=== PATIENT | female | born 1990 ===

== ENCOUNTER 2025-09-06 15:44 | Emergency (ER) | payer BC ==
[2025-09-06] MEDS ORDERED: Lidocaine 1%/Epinephrine 1:100K 10 ML VIAL ONE (16:07)
[2025-09-06] MEDS ORDERED: Acetaminophen 500 MG TAB ONE (16:07)
[2025-09-06] MEDS ORDERED: Amoxicillin/Potassium Clav 875 MG TAB ONE (16:08)
[2025-09-06] MEDS ORDERED: Ibuprofen 800 MG TAB ONE (16:08)
[2025-09-06] MEDS ORDERED: Bacitracin 1 PK ONE (17:19)
== END 2025-09-06 18:10 | disposition home or self-care (01) ==
LOC: MADERS 15:44
DX: S31.154A Open bite of abdominal wall, left lower quadrant without penetration into peritoneal cavity, initial encounter (principal); S71.152A Open bite, left thigh, initial encounter; W54.0XXA Bitten by dog, initial encounter; Z23 Encounter for immunization
CPT/HCPCS: 12002; 90471; 90715